=== PATIENT | female | born 1945 | race Caucasian/White ===

== ENCOUNTER → 2020-09-15 | Outpatient (CLI) | payer MEDICARE ==
[~2020-09-15] MED LIST: ACHD5005 PO; AZIT-21 PO
--- NOTE | 2020-09-15 11:25 | Diagnostic Imaging Report ---
INDICATION: Routine screening. COMPARISON is made with prior mammogram from 11/22/2011 and 02/02/2009. 2-D and 3-D bilateral screening mammography was performed with CAD. Scattered fibroglandular densities are identified bilaterally. Areas of benign nodularity in both breasts appear stable. No spiculated mass or malignant appearing microcalcifications are seen. Axillae are unremarkable. IMPRESSION: BI-RADS Category 2 No mammographic features suspicious for malignancy are identified. ACR BI-RADS Category 2: Benign findings. Result letter will be mailed to the patient. Note: At least 10% of breast cancer is not imaged by mammography. Dictated by: Dictated on workstation # [id number]
== END ==
LOC: RAD 08:00
PROVIDERS: ATTEND Nurse Practitioner Family
DX: Z12.31 Encounter for screening mammogram for malignant neoplasm of breast (principal)
CPT/HCPCS: 77063; 77067

== ENCOUNTER → 2021-06-26 | Outpatient (CLI) | payer MEDICARE ==
[~2021-06-26] MED LIST changes: +AMLO-250 PO; +ASPI-999 PO; +ATOR40TA70 PO; +CALC600T91 PO; +NF-VITD400 PO; +POTA99TA26 PO; +VITA-189 PO; +VITA400C64 PO; +ZINC50TA11 PO
--- NOTE | 2021-06-26 13:03 | Diagnostic Imaging Report ---
CLINICAL INDICATION: Patient with carotid occlusive disease. COMPARISON: None EXAM: Real-time ultrasound carotid Doppler duplex imaging is performed bilaterally with multiple real-time grayscale images obtained in various projections. Additional spectral analysis and color Doppler duple images were also obtained. Peak systolic velocity, ICA/CCA peak systolic ratio, spectral analysis, and vascular morphology are studied. FINDINGS: ARTERY VELOCITY Right Left CCA 0.62 m/s 0.72 m/s ICA 0.98 m/s 1.14 m/s ECA 0.88 m/s 1.17 m/s ICA/CCA 1.6 1.6 VERT.ART Antegrade Antegrade There is mild bilateral carotid artery atherosclerotic disease with the left carotid artery affected more than the right. There is no significant grayscale evidence of stenosis noted. IMPRESSION: There is bilateral carotid artery atherosclerotic disease with no grayscale or Doppler evidence of significant vascular stenosis. Dictated by: Dictated on workstation # [id number]
== END ==
LOC: RAD 09:00
PROVIDERS: ATTEND Internal Medicine
DX: I65.23 Occlusion and stenosis of bilateral carotid arteries (principal)
CPT/HCPCS: 93880

== ENCOUNTER 2021-06-28 07:22 | Outpatient (CLI) | payer MEDICARE ==
[~2021-06-28] VITALS: Ht 167.6 cm; Wt 72.1 kg
[~2021-06-28 07:22] MED LIST changes: -AMLO-250 PO; -ASPI-999 PO; -ATOR40TA70 PO; -CALC600T91 PO; -NF-VITD400 PO; -POTA99TA26 PO; -VITA-189 PO; -VITA400C64 PO; -ZINC50TA11 PO
[2021-06-28] MEDS ORDERED: AMLO-250 PO (08:27)
[2021-06-28] MEDS ORDERED: ATOR40TA70 PO (08:27)
[2021-06-28] MEDS ORDERED: VITA-189 PO (08:27)
[2021-06-28] MEDS ORDERED: ASPI-999 PO (08:28)
[2021-06-28] MEDS ORDERED: CALC600T91 PO (08:28)
[2021-06-28] MEDS ORDERED: ZINC50TA11 PO (08:28)
[2021-06-28] MEDS ORDERED: VITA400C64 PO (08:28)
[2021-06-28] MEDS ORDERED: NF-VITD400 PO (08:28)
[2021-06-28] MEDS ORDERED: POTA99TA26 PO (08:28)
== END 2021-06-28 12:42 | disposition home or self-care (01) ==
LOC: PREOP 07:22
PROVIDERS: ATTEND Internal Medicine
DX: Z01.818 Encounter for other preprocedural examination (principal)

== ENCOUNTER 2021-07-06 10:20 | Day surgery (SDC) | payer MEDICARE ==
--- NOTE | 2021-06-28 08:43 | HISTORY AND PHYSICAL ---
DATE OF SERVICE: COLONOSCOPY HISTORY AND PHYSICAL HISTORY OF PRESENT ILLNESS: The patient is a 75-year-old white female referred by Dr. Wagner for screening colonoscopy. She reports she had one other screening procedure done over 11 years ago, at which time she does not recall whether or not she had any colon polyps. She does have a sister, recently underwent a subtotal colectomy for diverticular disease and another sister recently had colonoscopy and was noted to have 3 precancerous polyps per her report. Her sister with polyps was 72 years old and the other sister is 76. She is not aware of any family history for GI tract malignancy. She has had a couple of small volume bright red blood per rectum without pain. Over the past year, she is averaged 2 to 3 bowel movements per day, which was a change. They were loose and for the most part in the morning without incontinence or any abdominal cramping. She was not aware of any medication issues, but has been taking magnesium, although she is not sure whether or not there is a temporal association with the onset of magnesium with her loose stools. There has been benefit with the addition of fiber. PAST MEDICAL HISTORY: Significant for hypertension, hyperlipidemia with no known history of coronary artery disease. PAST SURGICAL HISTORY: She has had hysterectomy for benign reasons and bilateral salpingo-oophorectomy 15 years ago, foot surgery at the age of 51, cataract surgery 5 years ago, and a tonsillectomy. SOCIAL HISTORY: She works as a lisa specialist at [employer] and is with no significant past alcohol use. She is an everyday smoker, 50+ pack years, has cut down significantly with a goal of cessation. She is down to 4 cigarettes per day. FAMILY HISTORY: As noted in the HPI. Father of complications of diabetes and mother of complications of dementia as well as heart disease. Father also had a history of heart disease. REVIEW OF SYSTEMS: CONSTITUTIONAL: Denies night sweats, chills, fever, or change in weight. PULMONARY: Mild cough, stable sputum production, no hemoptysis, no dyspnea on exertion or at rest. CARDIOVASCULAR: Denies chest pain, orthopnea, PND, pedal edema, or syncope. GASTROINTESTINAL: As noted in the HPI. PHYSICAL EXAMINATION: GENERAL: Reveals a pleasant, articulate white female, appearing to be in no acute distress. VITAL SIGNS: Blood pressure 130/70, weight 160. HEENT: Unremarkable. Sclerae nonicteric. CHEST: Clear. CARDIOVASCULAR: Reveals regular rate and rhythm without S3 or S4, soft 1 to 2/6 systolic ejection murmur heard best at the left lower sternal border. No evidence for pulsus, parvus or tardus. No S3 or S4 noted. ABDOMEN: Soft, supple without mass, organomegaly or tenderness. There is a soft bruit noted in the epigastrium. No evidence for abdominal aortic aneurysm to palpation. No tenderness. Bowel sounds positive. EXTREMITIES: Reveal no cyanosis, clubbing, or edema. LABORATORY DATA: The patient had recent blood tests that did reveal mild anemia with a hemoglobin of 12.2, normal MCV of 94. White count was 5.9 thousand with a normal differential, platelet count 245,000. Chemistry panel and lipid studies were unremarkable as was TSH 2.98. ASSESSMENT AND PLAN: 1. The patient is being set up for screening colonoscopy. Due to loosening the stools, it was advised that she hold her magnesium and she is not on diuretic therapy or anything else that would deplete her magnesium to see if this improves her symptoms. 2. Asymptomatic epigastric bruit without evidence to suggest abdominal aortic aneurysm on physical examination, the patient commended for decrease in her smoking, advised to continue to try to wean herself off of cigarettes altogether as I am sure Dr. Wagner has done. I thank you for the referral of this pleasant lady, scheduled for colonoscopy on . Prep instructions with the Suprep kit were given and questions answered. I thank you for the referral of this pleasant lady. Job ID: [id number] DocumentID: [id number] Dictated Date: 06/20/2021 15:44:11 Oil Well Service Operator Date: 06/20/2021 17:43:59 Dictated By: ANTONETTE NUNN MD [facility]
[~2021-07-06] VITALS: Ht 168 cm; Wt 72.1 kg
[~2021-07-06 10:20] MED LIST changes: +AMLO-250 PO; +ASPI-999 PO; +ATOR40TA70 PO; +CALC600T91 PO; +NF-VITD400 PO; +POTA99TA26 PO; +VITA-189 PO; +VITA400C64 PO; +ZINC50TA11 PO
[2021-07-06] MEDS ORDERED: LACTATED RINGERS 1,000 ML IV ONE (10:23)
[2021-07-06 10:25] VITALS: BP 149/87
[2021-07-06] MEDS ORDERED: LACTATED RINGERS 1,000 ML IV STA (10:26)
--- NOTE | 2021-07-06 10:45 | Pre-Op Note & Conscious Sedat ---
Pre-Operative Progress Note H&P Reviewed The H&P was reviewed, patient examined and no changes noted. Date H&P Reviewed: Jul 06, 2021 Time H&P Reviewed: 10:05 Conscious Sedation Pre-Proced ASA Score 2 For ASA 3 and 4: Consider anesthesia and medical clearance. Also, for patients with a history of failed moderate sedation consider anesthesia. Airway Lungs Heart ASA score ASA 1: a normal healthy patient ASA 2: a patient with a mild systemic disease (mid diabetes, controlled hypertension, obesity ASA 3: a patient with a severe systemic disease that limits activity (angina, COPD, prior Myocardial infarction) ASA 4: a patient with an incapacitating disease that is a constant threat to life (CHF, renal failure) ASA 5: a moribund patient not expected to survive 24 hrs. (ruptured aneurysm) ASA 6: a declared brain- patient whose organs are being harvested. For emergent operations, add the letter E after the classification Mallampati Classification Grade 2 Sedation Plan Analgesia, Amnesia, Plan communicated to team members, Discussed options with patient/fam, Discussed risks with patient/fam The patient is an appropriate candidate to undergo the planned procedure, sedation, and anesthesia. The patient immediately re-assessed prior to indication. ANTONETTE NUNN MD Jul 06, 2021 10:45
[2021-07-06] MEDS ORDERED: MIDAZOLAM 2 MG/2 ML (VERSED) VIAL ONE (11:27)
[2021-07-06] MEDS ORDERED: PROPOFOL INJECTION 50 ML IV ONE (11:28)
[2021-07-06 12:05] VITALS: BP 140/67
[2021-07-06 12:10] VITALS: BP 155/78
[2021-07-06 12:25] VITALS: BP 152/83
--- NOTE | 2021-07-06 14:01 | Anesthesia-General Post-Op ---
MAC Patient Condition Mental Status/LOC: Same as Preop Cardiovascular: Satisfactory Nausea/Vomiting: Absent Respiratory: Satisfactory Pain: Controlled Complications: Absent Post Op Complications Complications None Follow Up Care/Instructions Patient Instructions None needed. Anesthesiology Discharge Order Discharge Order Patient is doing well, no complaints, stable vital signs, no apparent adverse anesthesia problems. No complications reported per nursing. STEVNESON JOHN CRNA Jul 06, 2021 14:01
--- NOTE | 2021-07-06 17:43 | OPERATIVE REPORT ---
DATE OF SERVICE: COLONOSCOPY SUMMARY INDICATION FOR THE PROCEDURE: Screening colonoscopy. DESCRIPTION OF PROCEDURE: The patient was placed in the left lateral decubitus position. Prior to undergoing colonoscopy, digital rectal evaluation was performed. Anal sphincter tone was normal and the perianal reflexes intact. Sessile polyp was noted on digital inspection in the distal rectal vault. The tissue was mobile. There was no evidence for induration noted on digital inspection. No other abnormalities were noted on digital inspection of anal canal or distal rectal vault. The colonoscope was then inserted into the rectum and under direct visualization advanced to cecum. The cecum was identified by identification of the ileocecal valve and cecal strap. Photographic documentation was obtained. Careful inspection was made as colonoscope withdrawn. Quality of prep was good. FINDINGS: There was a sessile lobular distal rectal polyp noted. It was biopsied and ablated in multiple positions including on retroflexion with minimal blood loss. The tissue was submitted for histopathology. The remainder of the rectum was unremarkable. Moderate diverticular disease without evidence for diverticulitis was noted confined to the sigmoid colon with no other sigmoid colonic abnormalities being appreciated. The descending colon, splenic flexure, transverse colon, hepatic flexure, ascending colon, and cecum were unremarkable. ASSESSMENT: 1. A sessile adenomatous appearing polyp was noted in the distal rectum, which was biopsied and cauterized in multiple locations. As long as there is no evidence for dysplasia or microscopic malignancy, we will be advocating repeat surveillance colonoscopy in one year. Moderate diverticular disease confined to the sigmoid colon was present without evidence for diverticulitis. Job ID: [id number] DocumentID: [id number] Dictated Date: 07/06/2021 12:15:22 International Bank Manager Date: 07/06/2021 17:43:10 Dictated By: ANTONETTE NUNN MD
== END 2021-07-06 12:33 | disposition home or self-care (01) ==
LOC: ENDO 10:20
PROVIDERS: ATTEND Internal Medicine
DX: Z12.11 Encounter for screening for malignant neoplasm of colon (principal); A63.0 Anogenital (venereal) warts; K62.89 Other specified diseases of anus and rectum; K57.30 Diverticulosis of large intestine without perforation or abscess without bleeding; F17.210 Nicotine dependence, cigarettes, uncomplicated
CPT/HCPCS: 88305; 88342

== ENCOUNTER → 2021-10-09 | Outpatient (CLI) | payer MEDICARE ==
--- NOTE | 2021-10-09 15:10 | Diagnostic Imaging Report ---
INDICATION: Screening. EXAMINATION: Bilateral 3D digital screening with CAD. COMPARISON: 09/15/2020. DENSITY: 2. FINDINGS: No breast mass, spiculation, architectural distortion, suspicious calcifications, or evidence for malignancy. There has been no change. IMPRESSION: Negative mammography. ACR BI-RADS Category 1: Negative. Result letter will be mailed to the patient. Note: At least 10% of breast cancer is not imaged by mammography. Dictated by: Dictated on workstation # [id number]
== END ==
LOC: RAD 09:29
PROVIDERS: ATTEND Nurse Practitioner Family
DX: Z12.31 Encounter for screening mammogram for malignant neoplasm of breast (principal)
CPT/HCPCS: 77063; 77067

== ENCOUNTER 2022-01-22 05:32 | Outpatient (CLI) | payer MEDICARE ==
[~2022-01-22] VITALS: Ht 167.6 cm; Wt 68.0 kg
[2022-01-24] MEDS ORDERED: MULT-974 PO (08:48)
== END 2022-01-24 09:02 | disposition home or self-care (01) ==
LOC: PREOP 05:32
PROVIDERS: ATTEND Internal Medicine
DX: Z01.818 Encounter for other preprocedural examination (principal)

== ENCOUNTER 2022-01-29 06:55 | Day surgery (SDC) | payer MEDICARE ==
--- NOTE | 2022-01-18 11:00 | HISTORY AND PHYSICAL ---
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 She reports that she has been feeling well. She has had no rectal pain, has noted no bleeding, no tenesmus or change in bowel habits. There have been no reported health changes over the last six months. PHYSICAL EXAMINATION: GENERAL: Reveals a white female appeared to be in no acute distress. VITAL SIGNS: Blood pressure 122/82, weight 150. HEENT: Unremarkable. CHEST: Clear. CARDIOVASCULAR: Reveals a regular rate and rhythm without S3 or S4, soft 1 to 2/6 systolic ejection murmur noted at second intercostal space. ABDOMEN: Soft, supple without mass, organomegaly or tenderness. EXTREMITIES: Reveal no cyanosis, clubbing or edema. 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 The patient having been referred by Dr. Wagner. Prep instructions were given with Colyte and she had some nausea towards the end of her prep dose last time, we will pretreat with 4 mg of Zofran via Melt tab half an hour prior. She will abstain from aspirin and she is being set up for 01/25/2022. DocumentID: [id number] Dictated Date: 01/18/2022 00:00:00 Station Operator Date: 01/18/2022 03:56:00 Dictated By: ANTONETTE NUNN MD [facility]
[~2022-01-29] VITALS: Ht 167.6 cm; Wt 68.0 kg
[~2022-01-29 06:55] MED LIST changes: +MULT-974 PO
[2022-01-29] MEDS ORDERED: LACTATED RINGERS 1,000 ML IV STA (07:11)
[2022-01-29] MEDS ORDERED: PROPOFOL INJECTION 50 ML IV ONE (07:14)
[2022-01-29 07:26] VITALS: BP 124/72
--- NOTE | 2022-01-29 07:34 | Pre-Op Note & Conscious Sedat ---
Pre-Operative Progress Note Date H&P Reviewed: Jan 29, 2022 Time H&P Reviewed: 07:34 History & Physical: H&P Reviewed, Patient Examed, No changes noted Pre-Op Diagnosis: surviellance colonoscopy Conscious Sedation Pre-Proced ASA Score 2 For ASA 3 and 4: Consider anesthesia and medical clearance. Also, for patients with a history of failed moderate sedation consider anesthesia. Airway Lungs Heart ASA score ASA 1: a normal healthy patient ASA 2: a patient with a mild systemic disease (mid diabetes, controlled hypertension, obesity ASA 3: a patient with a severe systemic disease that limits activity (angina, COPD, prior Myocardial infarction) ASA 4: a patient with an incapacitating disease that is a constant threat to life (CHF, renal failure) ASA 5: a moribund patient not expected to survive 24 hrs. (ruptured aneurysm) ASA 6: a declared brain- patient whose organs are being harvested. For emergent operations, add the letter E after the classification Mallampati Classification Grade 2 Sedation Plan Analgesia, Amnesia, Plan communicated to team members, Discussed options with patient/fam, Discussed risks with patient/fam The patient is an appropriate candidate to undergo the planned procedure, sedation, and anesthesia. The patient immediately re-assessed prior to indication. ANTONETTE NUNN MD Jan 29, 2022 07:34
[2022-01-29 08:10] VITALS: BP 87/52
[2022-01-29 08:15] VITALS: BP 93/55
[2022-01-29 08:30] VITALS: BP 125/68
[2022-01-29 08:36] VITALS: BP 125/68
--- NOTE | 2022-01-29 08:38 | Progress Note-Post Operative ---
Post-Procedure Note Physician (s)/Tinner Helper (s) Physician ANTONETTE NUNN MD Pre-Procedure Diagnosis Pre-Procedure Diagnosis: surviellance colonoscopy Post-Procedure Diagnosis Post-operative diagnosis: Prior to undergoing colonoscopy digital rectal evaluation was performed. No abnormalities noted on digital inspection of the anal canal or distal rectal vault however on colonoscopy there was still evidence for sessile tissue previously noted to be dysplastic condyloma acuminata. There was no evidence for ulceration. The colonoscope was inserted into the rectum and under direct physician advanced to the cecum. The cecum was identified by Identification of the ileocecal valve and cecal strap. Photographic documentation was obtained. Quality of prep was good. Careful suction was made as the colonoscope was withdrawn. Findings: As noted above there is still evidence for remnants of sessile polypoidal tissue without ulceration or evidence for induration on digital evaluation of previously reported condyloma. Biopsy and cauterization was performed and tissue was submitted for histopathology. No other rectal abnormalities were identified and there was no evidence for perianal or perineal condyloma. Again noted was moderate diverticular disease confined to the sigmoid colon without evidence for diverticulitis. The descending colon splenic flexure transverse colon hepatic flexure and ascending colon were unremarkable. There was a jensen sessile 4 x 6 mm polyp noted in the cecum without evidence for ulceration. It was photographed and biopsied and ablated with no subsequent blood loss. A/P 1. Findings compatible with remnant condyloma acuminata were noted confined to the distal rectum with no evidence for perianal or perineal disease. We will await histopathology reports before making a recommendation for future surveillance procedure that likely will be no longer than 1 year shorter if dysplasia is identified. 2. Moderate diverticular disease confined to the sigmoid colon was present without evidence for diverticulitis. ANTONETTE NUNN MD Jan 29, 2022 08:37
--- NOTE | 2022-01-29 11:32 | Anesthesia-General Post-Op ---
MAC Patient Condition Mental Status/LOC: Same as Preop Cardiovascular: Satisfactory Nausea/Vomiting: Absent Respiratory: Satisfactory Pain: Controlled Complications: Absent Post Op Complications Complications None Follow Up Care/Instructions Patient Instructions None needed. Anesthesiology Discharge Order Discharge Order Patient is doing well, no complaints, stable vital signs, no apparent adverse anesthesia problems. No complications reported per nursing. STEVENSON JOHN CRNA Jan 29, 2022 11:31
== END 2022-01-29 08:50 | disposition home or self-care (01) ==
LOC: ENDO 06:55
PROVIDERS: ATTEND Internal Medicine
DX: Z12.11 Encounter for screening for malignant neoplasm of colon (principal); K63.5 Polyp of colon; A63.0 Anogenital (venereal) warts; K57.30 Diverticulosis of large intestine without perforation or abscess without bleeding; F17.210 Nicotine dependence, cigarettes, uncomplicated
CPT/HCPCS: 88305; 88342

== ENCOUNTER → 2022-08-28 | Outpatient (CLI) | payer MEDICARE ==
[~2022-08-28] VITALS: Ht 167.6 cm; Wt 64.0 kg
== END | disposition home or self-care (01) ==
LOC: PREOP 06:43
PROVIDERS: ATTEND Internal Medicine
DX: Z01.818 Encounter for other preprocedural examination (principal)

== ENCOUNTER → 2022-10-17 | Outpatient (CLI) | payer MEDICARE ==
--- NOTE | 2022-10-17 10:11 | Diagnostic Imaging Report ---
INDICATION: Routine screening. COMPARISON: 10/09/2021 and 09/15/2020. TECHNIQUE: 2D and 3D bilateral screening mammography was performed with CAD. FINDINGS: Both breasts are heterogeneously dense, limiting the sensitivity of mammography. The parenchymal pattern is stable. No mass or malignant-appearing microcalcifications are seen. There are benign calcifications noted. The axillae are unremarkable. IMPRESSION: No mammographic features suspicious for malignancy are identified. ACR BI-RADS Category 2: Benign findings. Result letter will be mailed to the patient. Note: At least 10% of breast cancer is not imaged by mammography. Dictated by: Dictated on workstation # [id number]
== END ==
LOC: RAD 07:03
PROVIDERS: ATTEND Internal Medicine
DX: Z12.31 Encounter for screening mammogram for malignant neoplasm of breast (principal)
CPT/HCPCS: 77063; 77067

== ENCOUNTER 2023-01-23 10:11 | Outpatient (RCR) | payer MEDICARE ==
[2023-01-16 10:05] VITALS: BP 125/73
[2023-01-16] MEDS: FERRIC CARBOXYMALTOSE INJ 750 MG in NS (IVPB) 250 ML 250 ML IV SCH (11:00)
[2023-01-23 10:00] VITALS: BP 123/67
[2023-01-23] MEDS: FERRIC CARBOXYMALTOSE INJ 750 MG in NS (IVPB) 250 ML 250 ML IV SCH (10:28)
== END 2023-02-13 | disposition home or self-care (01) ==
LOC: SDC 10:11
PROVIDERS: ATTEND Internal Medicine
DX: D50.8 Other iron deficiency anemias (principal); E61.1 Iron deficiency
CPT/HCPCS: 96365